=== PATIENT | male | born 1990 | race African-American/Black ===

== ENCOUNTER 2025-05-04 08:56 | Observation (INO) | payer OTHER ==
[~2025-05-04] VITALS: Ht 170.2 cm; Wt 84.3 kg
[2025-05-04] VITALS (7 sets, daily range): BP systolic 137–168; BP diastolic 79–108; TEMP 97.9–98.8; O2SAT 94–100
[2025-05-04 09:55] LABS: KETONE, URINE AUTO RFX NEGATIVE (NEGATIVE); LEUKOCYTE ESTERASE UR AUTO RFX NEGATIVE (NEGATIVE); MUCUS, URINE RFX SMALL (NEGATIVE); NITRITE, URINE AUTO RFX NEGATIVE (NEGATIVE); RBC, URINE AUTO RFX 0 /HPF (0-3); SQUAM EPITHELIAL CELL UR AURFX 0 /HPF (0-6); WBC, URINE AUTO RFX 1 /HPF (0-3)
[2025-05-04] MEDS: ONDANSETRON 4MG 2ML VIAL IV ONE (10:35)
[2025-05-04] MEDS: KETOROLAC 30 MG/ML 1 ML VIAL IV ONE (10:35)
[2025-05-04 10:37] LABS: HIV 1&2 SCREEN NEGATIVE (NEGATIVE)
[2025-05-04 11:28] LABS: BASO # 0.0 10^3/uL (0.0-0.2); BASO % 0.6 % (0.0-1.0); EOS # 0.0 10^3/uL (0.0-0.5); EOS % 0.4 % (0.0-3.0); LYMPH # 2.3 10^3/uL (1.5-5.0); LYMPH % 46.1 % (24.0-44.0); MONO # 0.3 10^3/uL (0.0-0.8); MONO % 5.9 % (2.0-8.0); NEUTROPHILS # 2.4 10^3/uL (1.5-8.5); NEUTROPHILS % 46.8 % (36.0-66.0); PLATELET COUNT, AUTOMATED 194 10^3/uL (150-450)
[2025-05-04 11:35] LABS: ALT/SGPT 19 U/L (7.0-40); AST/SGOT 20 U/L (<34); C REACTIVE PROTEIN QUANTITATIV < 0.50 MG/DL (<1.0); CALCIUM LEVEL 9.2 MG/DL (8.5-10.1); CARBON DIOXIDE LEVEL 25 MMOL/L (20-31); CHLORIDE LEVEL 106 MMOL/L (98-107); CREATININE FOR GFR 1.07 MG/DL (0.70-1.30); GLOMERULAR FILTRATION RATE > 90.0 (>60); POTASSIUM SERUM 4.3 MMOL/L (3.5-5.1); SODIUM LEVEL 143 MMOL/L (136-145)
[2025-05-04 12:38] LABS: ERYTHROCYTE SEDIMENTATION RATE 7 mm/hr (0-15)
[2025-05-04 12:41] LABS: Trichomonas vaginalis (AMP) NOT DETECTED (NEGATIVE)
[2025-05-04] MEDS ORDERED: LIDOCAINE 2% 100 MG/5 ML SDV (FOR ANES.) As Ordered ONE (12:57)
[2025-05-04] MEDS ORDERED: ROCURONIUM BROMIDE 50MG/5ML VIAL As Ordered ONE (13:01)
[2025-05-04] MEDS ORDERED: MIDAZOLAM INJ 2 MG/2 ML VIAL As Ordered ONE (13:01)
[2025-05-04 13:05] LABS: GC DNA AMPLIFICATION NEGATIVE (NEGATIVE)
[2025-05-04] MEDS ORDERED: ONDANSETRON 4MG 2ML VIAL IV PRN (13:10)
[2025-05-04] MEDS ORDERED: HYDROMORPHONE HCL 0.5 MG/0.5 ML SYRINGE IV PRN ×2 (13:10)
[2025-05-04] MEDS ORDERED: ONDANSETRON 4MG 2ML VIAL As Ordered ONE (13:24)
[2025-05-04] MEDS ORDERED: dexAMETHasone 4 MG/ML 1 ML VIAL As Ordered ONE (13:24)
[2025-05-04] MEDS ORDERED: PHENYLephrine 500MCG 5ML (100MCG/ML) SYRINGE As Ordered ONE (13:43)
[2025-05-04] MEDS ORDERED: SUGAMMADEX SODIUM 500 MG/5 ML VIAL As Ordered ONE (14:01)
[2025-05-04] MEDS ORDERED: IBUPROFEN 600 MG TAB PO PRN (15:05)
[2025-05-04] MEDS: LR 1,000 ML IV SCH (15:30)
[2025-05-04] MEDS ORDERED: HOME MED LIST COMPLETE! XX SCH (20:25)
[2025-05-05 00:07] VITALS: BP 115/71; TEMP 98.2; O2SAT 97
[2025-05-05 04:39] VITALS: BP 140/93; TEMP 98.1; O2SAT 97
[2025-05-05 05:47] LABS: PLATELET COUNT, AUTOMATED 185 10^3/uL (150-450)
[2025-05-05 06:13] LABS: CALCIUM LEVEL 8.9 MG/DL (8.5-10.1); CARBON DIOXIDE LEVEL 27.0 MMOL/L (20-31); CHLORIDE LEVEL 105.0 MMOL/L (98-107); CREATININE FOR GFR 1.16 MG/DL (0.70-1.30); GLOMERULAR FILTRATION RATE 85.8 (>60); POTASSIUM SERUM 4.0 MMOL/L (3.5-5.1); SODIUM LEVEL 141.0 MMOL/L (136-145)
[2025-05-05 07:49] VITALS: BP 138/93; TEMP 98.4; O2SAT 100
[2025-05-05] MEDS ORDERED: ACET650T61 PO (10:18)
[2025-05-05] MEDS ORDERED: IBUP600T42 PO (10:18)
== END 2025-05-05 12:30 | disposition home or self-care (01) ==
LOC: M ED 08:56 → M SDC 12:34 → M ED INP 12:35 → M MS5PR 14:50
PROVIDERS: ADMIT Internal Medicine; ATTEND Internal Medicine
DX: N44.03 Torsion of appendix testis (principal)
CPT/HCPCS: 36415; 54512; 54640; 76870; 80048; 80053; 81001; 83605; 85025; 85027; 85652; 86140; 86780; 87389; 87661; 87810; 87850; 96374; 96375; 99284; J0665; J0688; J1100; J1885; J2250; J2371; J2405; J3010